=== PATIENT | female | born 1955 | race Caucasian/White ===

== ENCOUNTER → 2016-05-25 | Outpatient (CLI) | payer BC ==
[~2016-05-25] MED LIST: CHOL100010 PO; LEVO50TA PO; LOSA100T2 PO
== END | disposition home or self-care (01) ==
LOC: C.PAPS 10:00
PROVIDERS: ATTEND Obstetrics & Gynecology
DX: Z01.419 Encounter for gynecological examination (general) (routine) without abnormal findings (principal)

== ENCOUNTER → 2016-07-12 | Outpatient (CLI) | payer BC ==
[2016-07-12 17:57] LABS: URINE APPEARANCE CLEAR (CLEAR); URINE BILIRUBIN NEG (NEG); URINE COLOR YELLOW; URINE EPITHELIAL CELL AUTO >30 /lpf (0-5); URINE NITRITE NEG (NEG); URINE PH 5.5 (4.5-7.5); URINE SPECIFIC GRAVITY 1.024 (1.000-1.030); UROBILINOGEN NEG (NEG)
[2016-07-12 18:23] LABS: MANUAL MICROSCOPIC REQUIRED? NO; REVIEW REQ? YES
[2016-07-12 18:41] LABS: URINE MUCUS PRESENT (NONE PRSENT)
== END | disposition home or self-care (01) ==
LOC: C.LAB1850 16:33
PROVIDERS: ATTEND Physician Assistant Medical
DX: R39.9 Unspecified symptoms and signs involving the genitourinary system (principal)

== ENCOUNTER → 2016-09-20 | Outpatient (CLI) | payer BC ==
[2016-09-20 12:12] LABS: BASO % 0.3 %; BASO ABS # 0.02 K/uL (0-0.2); COMPLETE YES; EOS % 1.8 %; HEMATOCRIT 42.5 % (37-47); IG% 0.1 %; LYMPH % 23.3 %; LYMPH ABS # 1.57 K/uL (1.2-3.4); MEAN CELL VOLUME 92.4 fL (80-100); MEAN CORPUSCULAR HEMOGLOBIN 30.9 pg (25-34); MEAN CORPUSCULAR HGB CONC 33.4 g/dl (32-36); MEAN PLATELET VOLUME 10.6 fL (7.4-10.4); MONO % 6.8 %; NEUT % 67.7 %; PLATELET COUNT 279 K/uL (130-400); WHITE BLOOD COUNT 6.73 K/uL (4.8-10.8)
[2016-09-20 12:19] LABS: URINE APPEARANCE TURBID (CLEAR); URINE BILIRUBIN NEG (NEG); URINE COLOR YELLOW; URINE EPITHELIAL CELL AUTO >30 /lpf (0-5); URINE NITRITE NEG (NEG); URINE SPECIFIC GRAVITY 1.028 (1.000-1.030); UROBILINOGEN NEG (NEG); ZZUR CULT IF INDIC CLEAN CATCH NO
[2016-09-20 12:23] LABS: MANUAL MICROSCOPIC REQUIRED? NO; REVIEW REQ? NO
[2016-09-20 12:34] LABS: CALCIUM 9.4 mg/dl (8.5-10.1)
[2016-09-20 12:35] LABS: ESTIMATED AVERAGE GLUCOSE 117 mg/dl; HA1C FLAG Normal (Normal)
[2016-09-20 12:36] LABS: ALT/SGPT 22 U/L (12-78); AST/SGOT 14 U/L (15-37); BLOOD UREA NITROGEN 23 mg/dl (7-18); BUN/CREATININE RATIO 29.6 (10-20); CARBON DIOXIDE 31 mmol/L (21-32); CHLORIDE 109 mmol/L (98-107); CREATININE 0.77 mg/dl (0.60-1.20); GLUCOSE 95 mg/dl (70-99); POTASSIUM 3.9 mmol/L (3.5-5.1); SODIUM 143 mmol/L (136-145)
[2016-09-20 12:46] LABS: ALB/GLOB RATIO 1.1 (0.9-2); ALKALINE PHOSPHATASE 92 U/L (45-117); CHOLESTEROL 173 mg/dl (0-200); CHOLESTEROL/HDL RATIO 3.2; HDL CHOLESTEROL 54 mg/dl; LDL CHOLESTEROL CALCULATED 105 mg/dl; TRIGLYCERIDES 68 mg/dl (0-150); VERY LOW DENSITY LIPOPROT CALC 14 mg/dl
== END | disposition home or self-care (01) ==
LOC: C.LABBFT 07:42
PROVIDERS: ATTEND Internal Medicine
DX: R73.01 Impaired fasting glucose (principal); Z13.6 Encounter for screening for cardiovascular disorders; E03.9 Hypothyroidism, unspecified

== ENCOUNTER → 2016-11-28 | Outpatient (CLI) | payer BC ==
[2016-11-28 18:23] LABS: URINE APPEARANCE CLEAR (CLEAR); URINE BILIRUBIN NEG (NEG); URINE COLOR YELLOW; URINE NITRITE POS (NEG); URINE SPECIFIC GRAVITY 1.024 (1.000-1.030); UROBILINOGEN NEG (NEG)
[2016-11-28 18:24] LABS: MANUAL MICROSCOPIC REQUIRED? NO; REVIEW REQ? NO
== END | disposition home or self-care (01) ==
LOC: C.LABSPEC 17:39
PROVIDERS: ATTEND Physician Assistant
DX: N94.89 Other specified conditions associated with female genital organs and menstrual cycle (principal)

== ENCOUNTER → 2016-12-13 | Outpatient (CLI) | payer BC ==
[2016-12-13 17:46] LABS: URINE APPEARANCE CLEAR (CLEAR); URINE BILIRUBIN NEG (NEG); URINE COLOR YELLOW; URINE EPITHELIAL CELL AUTO 20-30 /lpf (0-5); URINE NITRITE NEG (NEG); URINE SPECIFIC GRAVITY 1.025 (1.000-1.030); UROBILINOGEN NEG (NEG); ZZUR CULT IF INDIC CLEAN CATCH YES
[2016-12-13 17:47] LABS: MANUAL MICROSCOPIC REQUIRED? NO; REVIEW REQ? NO
[2016-12-13 17:57] LABS: BLOOD UREA NITROGEN 12 mg/dl (7-18); CREATININE 0.62 mg/dl (0.60-1.20)
== END | disposition home or self-care (01) ==
LOC: C.LABBFT 14:41
PROVIDERS: ATTEND Internal Medicine
DX: R30.0 Dysuria (principal); R92.8 Other abnormal and inconclusive findings on diagnostic imaging of breast

== ENCOUNTER → 2016-12-14 | Outpatient (CLI) | payer BC ==
[~2016-12-14] MED LIST changes: +GADAVIST IV PRN
--- NOTE | 2016-12-17 13:10 | MAMMOGRAPHY REPORT ---
BREAST MRI OF BOTH BREASTS : 12/14/2016 CLINICAL HISTORY: Short interval followup of bilateral breast findings seen on prior breast MRI. 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 COMPARISON: Comparison is made to exams dated: 03/23/2016 mammogram, 09/20/2015 ultrasound, 10/04/2015 breast MRI, and 09/20/2015 mammogram - [facility]. CT abdomen/pelvis dated 012. Technique: The patient was placed prone in a dedicated breast imaging coil. Precontrast axial T1-wendie ghted, axial T2-weighted fat saturation, and axial T1-weighted fat saturation images were obtained. After the administration of 9 mL of Gadavist IV contrast, sequential T1-weighted fat saturation image s were obtained. Subtraction images were obtained of the dynamic contrast enhanced sequences, and 3- D reformations were performed. The [employer] [place] software was used for kinetic analysis. Findings: There is mild background parenchymal enhancement bilaterally. There has been no significant interval change compared to the prior breast MRI. Small 4 mm enhancing focus in the right 10:00 breast with as sociated T2 hyperintensity and persistent/plateau kinetics is stable compared to the 10/04/2015 exam an d considered benign given the benign morphology and stability (series [id number] image [id number]) . An 11 mm area of focal enhancement is again noted in the left 6:00 posterior breast, which contains interspersed T 1 hyperintensity consistent with fat and likely represents an island of normal fibroglandular tissue or lymph node (06282/98). The finding is stable compared to the prior 10/04/2015 breast MRI and additi onally this is stable compared to a prior CT abdomen from 2011. Given the long-term stability, the f inding is considered benign. There are multiple small T2 hyperintense, rim-enhancing masses bilatera lly, similar to the prior breast MRI and consistent with benign inflammatory cysts. There are no new or suspicious enhancing masses or areas of abnormal non-mass enhancement within either breast. There is no evidence of axillary adenopathy. The chest wall structures are negative. Extramammary s oft tissues are unremarkable. IMPRESSION: ACR BI-RADS CATEGORY 2: BENIGN Stable exam compared to the 10/04/2015 MRI, with no MRI evidence of malignancy in either breast. Retur n to annual mammogram screening schedule is recommended, due March 2017. Also recommend clinical follow-up for reported bilateral breast pain. Rosy Garner M.D. ah/:12/15/2016 11:53:54 Manufacturing Quality Inspector: floor polisher, [facility] BI-RADS Code: ACR BI-RADS Category 2: Benign
== END | disposition home or self-care (01) ==
LOC: C.MRI 15:40
PROVIDERS: ATTEND Internal Medicine
DX: N63 Unspecified lump in breast (principal); R92.8 Other abnormal and inconclusive findings on diagnostic imaging of breast

== ENCOUNTER → 2017-05-29 | Day surgery (SDC) | payer BC ==
[2017-05-17 10:53] VITALS: Ht 177.8 cm; Wt 90.9 kg
[~2017-05-29] VITALS: Ht 177.8 cm; Wt 90.9 kg
[~2017-05-29] MED LIST changes: +CHOL1000 PO; -CHOL100010 PO; -GADAVIST IV PRN; +LIDOCAINE HCL 2% 2 ML VIAL (20MG/ML) ONE; -LOSA100T2 PO; +LOSA1TAB38 PO; +MIDAZOLAM HCL 1 MG/ML 2ML VIAL ONE; +ONDANSETRON INJ 2 MG/ML 2 ML VIAL ONE; +PROPOFOL IV EMULSION 10 MG/ML 20 ML VIAL IV ONE; +SODIUM CHLORIDE 0.9% 500ML 500 ML IV ONE
--- NOTE | 2017-05-29 13:32 | Endo History and Physical ---
History & Physical Date of Service: May 29, 2017. Chief Complaint: screening Referring Physician: Dr. Isacc August History of Present Illness 61 yo CF who presents for screening colonoscopy. Past Surgical History Hx Cardiac Surgery: No Hx Internal Defibrillator: No Hx Pacemaker: No Hx Abdominal Surgery: No Hx of Implantable Prosthesis: No Hx Post-Op Nausea and Vomiting: No Hx Cancer Surgery: No Hx Thoracic Surgery: No Hx Orthopedic: Yes (LUMBAR DISCECTOMY) Hx Urinary Tract Surgery: No Family History Colon CA Social History Smoking Status: Never Smoker Hx Substance Use: No Hx Alcohol Use: Yes (OCCASIONALLY) Allergies Coded Allergies: No Known Allergies (Verified , ., 05/17/17) Current Medications Reported Home Medications Medications Dose Route/Sig Max Daily Dose Days Date Category Vitamin D3 (Cholecalciferol) 1,000 Unit Tab 1 Tab PO QAM 05/17/17 Reported Cozaar (Losartan Potassium) 100 Mg Tab 100 Mg PO QAM 05/17/17 Reported Synthroid (Levothyroxine Sodium) 50 Mcg Tab 50 Mcg PO QAM 09/13/11 Reported Vital Signs Weight (Kilograms): 90.91 Height (Feet): 5 Height (Inches): 10 Date Time Temp Pulse Resp B/P (MAP) Pulse Ox O2 Delivery O2 Flow Rate FiO2 05/29/17 12:59 36.5 62 20 143/71 (95) 98 Room Air Physical Exam General Appearance: WD/WN, no apparent distress Respiratory/Chest: Auscultation: breath sounds normal Cardiovascular: Heart Auscultation: RRR Abdomen: Bowel Sounds: normal Inspection & Palpation: soft, non-distended, no tenderness, guarding & rebound Assessment and Plan Assessment: 61 yo CF who presents for screening colonoscopy. Plan: Proceed with colonoscopy.
--- NOTE | 2017-05-29 14:00 | Discharge Instructions ---
Endoscopy Patient Instructions Date / Procedure(s) Performed May 29, 2017. Colonoscopy Allergy Information Coded Allergies: No Known Allergies (Verified , ., 05/17/17) Discharge Date / Findings May 29, 2017. Diverticulosis Internal hemorrhoids Medication Instructions OK to resume all medications today as prescribed Reported Home Medications Medications Dose Route/Sig Max Daily Dose Days Date Category Vitamin D3 (Cholecalciferol) 1,000 Unit Tab 1 Tab PO QAM 05/17/17 Reported Cozaar (Losartan Potassium) 100 Mg Tab 100 Mg PO QAM 05/17/17 Reported Synthroid (Levothyroxine Sodium) 50 Mcg Tab 50 Mcg PO QAM 09/13/11 Reported Provider Instructions Activity Restrictions - No exercising or heavy lifting for 24 hours. - Do not drink alcohol the day of the procedure. - Do not drive a car or operate machinery until the day after the procedure. - Do not make any important decisions or sign important papers in 24 hours after the procedure. Following Day: - Return to full activity which may include returning to work/school. Diet Start your diet with liquids and light foods (jello, soup, juice, toast). Then eat your usual diet if not nauseated. Treatment For Common After Affects For mild abdominal pain, bloating, or excessive gas: - Rest - Eat lightly - Lie on right side Follow-Up Information Follow-up with Dr. Isacc August as scheduled Anesthesia Information What You Should Know You have had a procedure that required some medicine to reduce anxiety and discomfort. This treatment is called moderate sedation. After receiving the treatment, you may be sleepy, but you will be able to breathe on your own. The effects of the treatment may last for several hours. Follow these instructions along with Activity/Diet recommendations noted above: * Do NOT do anything where dizziness or clumsiness would be dangerous. * Rest quietly at home today, then you can be up and about tomorrow. * Have a responsible person stay with you the rest of today. * You may have had an I.V. today. If so, you may take the dressing off later today. Recommendations Call your doctor if: * Trouble breathing * Continuous vomiting for more than 24 hours * Temperature above 101 degrees * Severe abdominal pain or bloating * Pain not relieved by pain medicine ordered * There is increased drainage or redness from any incision * A large amount of rectal bleeding greater than 2-3 tablespoons. (If you had a polyp/s removed or have hemorrhoids, a small amount of blood - from the rectum is to be expected.) * You have any unanswered questions or concerns. IN THE EVENT OF A SERIOUS EMERGENCY, GO TO THE NEAREST EMERGENCY ROOM Your discharge instructions were prepared by provider Artis Melendez. Patient Instructions Signature Page Katie Teague Patient (or Guardian) Signature/Date: I have read and understand the instructions given to me by my caregivers. Caregiver/RN/Doctor Signature/Date: The above-named patient and/or guardian has received patient instructions on this date. + Original Patient Signature Page (only) stays with chart. Please make copy for patient.
--- NOTE | 2017-05-29 14:00 | GI REPORT ---
Procedure Date: 05/29/2017 12:57 PM Procedure: Colonoscopy Indications: Screening for colorectal malignant neoplasm Medicines: Monitored Anesthesia Care Complications: No immediate complications. Estimated Blood Loss: Estimated blood loss: none. Procedure: Pre-Anesthesia Assessment: - Prior to the procedure, a History and Physical was performed, and patient medications and allergies were reviewed. The patient's tolerance of previous anesthesia was also reviewed. The risks and benefits of the procedure and the sedation options and risks were discussed with the patient. All questions were answered, and informed consent was obtained. Prior Anticoagulants: The patient has taken no previous anticoagulant or antiplatelet agents. ASA Grade Assessment: II - A patient with mild systemic disease. After reviewing the risks and benefits, the patient was deemed in satisfactory condition to undergo the procedure. After I obtained informed consent, the scope was passed under direct vision. Throughout the procedure, the patient's blood pressure, pulse, and oxygen saturations were monitored continuously. The scope was introduced through the anus and advanced to the terminal ileum. The colonoscopy was performed without difficulty. The patient tolerated the procedure well. The quality of the bowel preparation was good. The terminal ileum, ileocecal valve, appendiceal orifice, and rectum were photographed. Findings: The perianal and digital rectal examinations were normal. Multiple small-mouthed diverticula were found in the sigmoid colon. Non-bleeding internal hemorrhoids were found during retroflexion. The hemorrhoids were small. Impression: - Diverticulosis in the sigmoid colon. - Non-bleeding internal hemorrhoids. - No specimens collected. Recommendation: - Resume previous diet. - Continue present medications. - Repeat colonoscopy in 10 years for surveillance. - Return to primary care physician as previously scheduled. Artis Melendez, 05/29/2017 1:59:38 PM This report has been signed electronically. Note Initiated On: 05/29/2017 12:57 PM I attest to the content of the Intraoperative Record and orders documented therein, exceptions below
[2017-05-29 14:26] VITALS: BP 113/73; PULSE 63; O2SAT 96
--- NOTE | 2017-05-29 14:54 | Anesthesiology Progress Note ---
Anesthesia Post Op Note Date & Time May 29, 2017 at 14:54 Vital Signs Pain Intensity: 0 Vital Signs Past 12 Hours Date Time Temp Pulse Resp B/P (MAP) Pulse Ox O2 Delivery O2 Flow Rate FiO2 05/29/17 14:26 63 18 113/73 (86) 96 Room Air 05/29/17 14:10 65 18 116/65 (82) 96 Room Air 05/29/17 13:56 76 18 104/55 (71) 95 Room Air 05/29/17 12:59 36.5 62 20 143/71 (95) 98 Room Air Notes Mental Status: alert / awake / arousable, participated in evaluation Pt Amnestic to Procedure: Yes Nausea / Vomiting: adequately controlled Pain: adequately controlled Airway Patency, RR, SpO2: stable & adequate BP & HR: stable & adequate Hydration State: stable & adequate Anesthetic Complications: no major complications apparent
== END | disposition home or self-care (01) ==
LOC: C.GI 12:38
PROVIDERS: ATTEND Internal Medicine
DX: Z12.11 Encounter for screening for malignant neoplasm of colon (principal); K57.30 Diverticulosis of large intestine without perforation or abscess without bleeding; K64.8 Other hemorrhoids; I10 Essential (primary) hypertension; Z80.0 Family history of malignant neoplasm of digestive organs

== ENCOUNTER → 2017-10-31 | Outpatient (CLI) | payer BC ==
[~2017-10-31] MED LIST changes: -LIDOCAINE HCL 2% 2 ML VIAL (20MG/ML) ONE; -MIDAZOLAM HCL 1 MG/ML 2ML VIAL ONE; -ONDANSETRON INJ 2 MG/ML 2 ML VIAL ONE; -PROPOFOL IV EMULSION 10 MG/ML 20 ML VIAL IV ONE; -SODIUM CHLORIDE 0.9% 500ML 500 ML IV ONE
== END | disposition home or self-care (01) ==
LOC: C.MAMM 14:03
PROVIDERS: ATTEND Internal Medicine
DX: Z78.0 Asymptomatic menopausal state (principal)

== ENCOUNTER 2019-04-21 09:43 | Observation (INO) ==
[2019-04-21] MEDS ORDERED: NITROGLYCERIN SL 0.4 MG/TAB TAB SL PRN ×2 (09:50→13:31)
[2019-04-21] MEDS ORDERED: ACETAMINOPHEN 500 MG TAB PO STA (09:50)
[2019-04-21] MEDS ORDERED: SODIUM CHLORIDE 0.9% 500 ML IV SCH (10:00)
[2019-04-21 10:09] LABS: Basophils # (auto) 0.02 K/uL (0-0.2); Basophils % (auto) 0.3 %; Eosinophils # (auto) 0.12 K/uL (0-0.5); Eosinophils % (auto) 1.7 %; Hematocrit (blood only) 41.5 % (37-47); Hemoglobin 13.8 g/dL (12.0-16.0); Immature Granulocytes # (auto) 0.01 K/uL (0.00-0.02); Immature Granulocytes % (auto) 0.1 %; Lymphocytes # (auto) 1.49 K/uL (1.2-3.4); Lymphocytes % (auto) 21.1 %; Mean Corpuscular Hgb Conc 33.3 g/dL (32-36); Mean Corpuscular Volume 90.2 fL (80-100); Mean Platelet Volume 9.9 fL (7.4-10.4); Monocytes # (auto) 0.56 K/uL (0.11-0.59); Monocytes % (auto) 7.9 %; Neutrophils # (auto) 4.85 K/uL (1.4-6.5); Neutrophils % (auto) 68.9 %; Platelet Count 292 K/uL (130-400); RDW Coefficient of Variation 14.7 % (11.5-14.5); White Blood Count 7.05 K/uL (4.8-10.8)
[2019-04-21 10:14] LABS: Appearance Urine Clear (Clear); Bacteria Urine Automated Negative (Negative); Bilirubin Urine Negative (Negative); Blood Urine Negative (Negative); Cast Urine Automated 0 /lpf (0-5); Color Urine Yellow; Glucose Urine UA Negative (Negative); Ketones Urine Negative (Negative); Leukocyte Esterase Urine Trace (Negative); Nitrite Urine Negative (Negative); Protein Urine Negative (Negative); RBC Urine Automated 0-4 /hpf (0-4); Specific Gravity Urine 1.017 (1.000-1.030); Urobilinogen Urine Negative (Negative)
--- NOTE | 2019-04-21 10:19 | XRay Report ---
XR chest 1V portable CLINICAL HISTORY: 63 years-old Female presenting with Chest Pain. TECHNIQUE: Portable upright AP view of the chest was obtained. COMPARISON: 03/14/2013. FINDINGS: Cardiac silhouette borderline enlarged. No focal opacity. No large effusion or pneumothorax. Degenera tive changes of the thoracic spine. Upper abdomen normal. IMPRESSION: 1. Borderline cardiomegaly. No other convincing evidence of acute cardiopulmonary disease. ACT 112: Negative or not required by law. Electronically signed by: Sreedhar Garnica M.D. 04/21/2019 10:18 AM
[2019-04-21 10:24] LABS: Alanine Aminotransferase 22 U/L (12-78); Albumin Level 3.8 gm/dl (3.4-5.0); Aspartate Aminotransferase 12 U/L (15-37); Blood Urea Nitrogen 18 mg/dl (7-18); Calcium 9.2 mg/dl (8.5-10.1); Carbon Dioxide 27 mmol/L (21-32); Chloride 107 mmol/L (98-107); Creatinine Clr Calc Pharmacy 95.3 ml/min; Est GFR (African American) 95.9; Est GFR (Non-African American) 82.8; Glucose 105 mg/dl (70-99); Lipase 209 U/L (73-393); Sodium 138 mmol/L (136-145)
[2019-04-21 10:29] LABS: Alkaline Phosphatase 120 U/L (45-117); Bilirubin,Total 1.4 mg/dl (0.2-1); Total Protein 7.8 gm/dl (6.4-8.2); Troponin I < 0.015 ng/ml (0-0.045)
--- NOTE | 2019-04-21 12:31 | History & Physical Report ---
Date of Service April 21, 2019 Assessment & Plan (1) Atypical chest pain: Admit to PCU on telemetry for atypical chest pain. Vital signs every 4 hours Troponin x3 with EKG to rule out possibility of acute coronary syndrome TTE pending Monitor electrolytes and replenish as needed DVT prophylaxis Lovenox 40 mg subcu daily Full code Present on Admission?: Yes (2) Blurry vision: Patient was reporting blurry vision when she had initial episode of chest pain. It subsided. Continue monitoring Present on Admission?: Yes (3) HTN (hypertension): Blood pressure is stable. Continue losartan 100 mg p.o. daily. Added aspirin 81 mg p.o. daily to patient's regimen. Present on Admission?: Yes (4) Hypothyroidism: TSH pending, continue levothyroxine 50 MCG's p.o. every morning. Present on Admission?: Yes (5) Hyperlipidemia: Lipid panel pending. Patient is not on statins. Consider starting statins tomorrow after fasting lipid panel results available. Will check for A1c just to make sure that patient is not diabetic. Present on Admission?: Yes History of Present Illness Chief Complaint: Chest pain and neck pain Primary Care Provider: Isacc August MD The patient is a 63 years old female with past medical history of arthralgia of multiple sites, diverticulosis, hypothyroidism, hypertension, who was brought to the emergency room by her and friend stating that patient started to have a chest pain this morning which has been ongoing. Patient reports that chest pain started this morning after her phone conversation which was not very pleasant. Patient reports having a lots of worries about her job. Patient reports that pain started on the left side of her chest and radiated to her neck and her left arm. She received nitroglycerin and that improved chest pain per se but the pain in her right neck and right upper back remained to be the same. Patient reports that she feels it feels like a whiplash. Patient denies fever, chills, headache, abdominal pain, frequency, urgency, syncope or near syncope. Patient denies any sick contact. Labs are reviewed: Sodium 138, potassium 4, chloride 107, carbon dioxide 27, anion gap 5, BUN 18, creatinine 0.77, GFR 82.8,Calcium 9.2, bilirubin 1.4, AST 12, ALT 22, alkaline phosphatase 120, troponin 0 0.015, Albumin 3.8, globulin 4, lipase 209, TSH pending, BNP pending, magnesium pending. WBC 7.05, hemoglobin 13.8, hematocrit 41.5, platelets 292, PT 10.9, INR 1.1, urine trace leukocyte esterase with 10-20 epithelial cells. Negative bacteria, negative nitrates. Chest x-ray is borderline cardiomegaly. No other convincing evidence of acute cardiopulmonary disease. Decision was made to admit patient to PCU on telemetry for observation and to rule out acute coronary syndrome. Allergies Allergy/AdvReac Type Severity Reaction Status Date / Time No Known Allergies Allergy Unknown . Verified 04/21/19 10:24 Home Medications Home Medications Medication Instructions Recorded Confirmed Type ascorbic acid (vitamin C) 500 mg 500 mg PO QAM cap 09/12/18 04/21/19 History capsule cholecalciferol (vitamin D3) 25 1,000 units PO QAM cap 11/07/18 04/21/19 History mcg (1,000 unit) capsule losartan 100 mg tablet 100 mg PO DAILY #90 tab 12/02/18 04/21/19 Rx Unknown Uti Medication 1 tab PO BID 04/21/19 04/21/19 History levothyroxine 50 mcg PO QAM 04/21/19 04/21/19 History Past Med/Surg History Medical History Arthralgia of multiple sites (Acute) Asymptomatic menopausal state (Acute) Diverticulosis (Acute) Gastroesophageal reflux disease (Acute) HTN (hypertension) (Chronic) Hyperglycemia (Acute) Hyperlipidemia (Chronic) Hypothyroidism (Chronic) Impaired fasting glucose (Chronic) Internal hemorrhoids (Acute) Lower esophageal ring (Acute) Migraine headache (Acute) Solar lentigo (Acute) Vaginal atrophy (Acute) Vitamin D deficiency (Acute) Surgical History H/O tubal ligation History of back surgery lumbar spine 2001 Family History Aunt Breast cancer maternal aunt Brother Cancer oral Hypothyroidism Mother Cirrhosis Atrial fibrillation Liver disease Hypothyroidism Father Diabetes Hyperlipidemia Hypertension Sister Hypothyroidism Social History Preferred Language: Maltese Communication Ability: Effective 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 Beliefs That Will Affect Care: None Current Living Situation: Spouse Other Information That Helps Us Care for You: No Feels Safe at Home: Yes Safety Concerns: Feels Safe At This Time Smoking Status: Never smoker Do You Dip or Chew Tobacco: No ; Second Hand Exposure: No ; Tobacco Cessation Education Requested by Patient: No Hx Alcohol Use: Yes Hx Substance Use: No Review of Systems Review of Systems: All systems reviewed & are unremarkable except as noted in HPI & below Physical Exam Constitutional: WD/WN, vitals as above well developed and + obese Eyes: PERRL, conjunctivae normal, anicteric sclerae ENMT: external ear and nose normal, oropharynx normal Neck: trachea midline, no thyromegaly Respiratory: normal respiratory effort, lungs clear to auscultation Cardiovascular: Rate/Rhythm: regular rhythm Heart Sounds: normal S1, normal S2 and + murmur Vessels: dorsalis pedis pulses present Gastrointestinal (Abdomen): normal bowel sounds, soft, nontender, no hepatosplenomegaly Musculoskeletal: no cyanosis or clubbing, extremities motor strength 5/5 Skin: no rashes, warm and dry Neurologic: patellar DTR's 2+ bilat, sensation intact Psychiatric: A+Ox3, euthymic affect Lymphatic: no cervical or axillary lymphadenopathy Results & Data Vital Signs (Past 12 Hours) Vital Signs Temp Pulse Pulse Resp BP BP Pulse Ox 04/21/19 12:00 57 L 17 154/81 H 99 04/21/19 11:30 60 16 141/74 H 98 04/21/19 11:00 55 L 16 149/71 H 98 04/21/19 10:15 64 18 148/84 H 98 04/21/19 10:14 99 04/21/19 10:06 65 16 162/88 H 97 04/21/19 09:58 98 04/21/19 09:40 36.6 C 70 16 165/86 H 98 Code Status & VTE Plan Code Status Full code VTE Prophylaxis Plan VTE Prophylaxis will be ordered: Yes PG Care Time/CCT Total # of Minutes Spent Total Time Spent with Patient: Total time spent is greater than 50% in coordination of care (as documented) at patient's floor/unit and/or counseling patient:
--- NOTE | 2019-04-21 12:42 | Emergency Department Note ---
Entered by Mike Ruiz acting as a scribe for History of Present Illness General Chief complaint: Chest Pain Time Seen by Provider: 04/21/19 09:44 Source: patient Limitations: no limitations History of Present Illness Onset (ago): hour(s) (1.5) Location: chest Radiation: back and neck Pain Consistency: + constant Quality: + aching Relieved By: + medication Associated symptoms: + denies other symptoms (swelling in legs); no cough and no nausea/vomiting Treatments prior to arrival: aspirin and other (nitroglycerin) The patient is a 63 year-old white female w/ PMHx HTN, HLD, GERD who presents to the ED w/ CC of constant and achy chest pain starting beginning 1.5 hours ago. The patient states she was reading papers when she noticed her vision was blurry. She states she then started to get chest pain and notes it radiated to her back and neck. She states she still has chest pain. EMS states the patient received aspirin and nitroglycerin on the way to the ED. The patient states she developed a headache after the medications in the ambulance, but notes her chest pain improved. She states she can see better now. She notes she has been taking her medications as prescribed. The patient denies coughing, swelling in legs, nausea, vomiting, and having a history of heart disease or blood clots. Home Medications Home Medications Medication Instructions Recorded Confirmed Type ascorbic acid (vitamin C) 500 mg 500 mg PO QAM cap 09/12/18 04/21/19 History capsule cholecalciferol (vitamin D3) 25 1,000 units PO QAM cap 11/07/18 04/21/19 History mcg (1,000 unit) capsule losartan 100 mg tablet 100 mg PO DAILY #90 tab 12/02/18 04/21/19 Rx Unknown Uti Medication 1 tab PO BID 04/21/19 04/21/19 History levothyroxine 50 mcg PO QAM 04/21/19 04/21/19 History Allergies Allergy/AdvReac Type Severity Reaction Status Date / Time No Known Allergies Allergy Unknown . Verified 04/21/19 10:24 Past Med/Surg History Medical History Arthralgia of multiple sites (Acute) Asymptomatic menopausal state (Acute) Diverticulosis (Acute) Gastroesophageal reflux disease (Acute) HTN (hypertension) (Chronic) Hyperglycemia (Acute) Hyperlipidemia (Chronic) Hypothyroidism (Chronic) Impaired fasting glucose (Chronic) Internal hemorrhoids (Acute) Lower esophageal ring (Acute) Migraine headache (Acute) Solar lentigo (Acute) Vaginal atrophy (Acute) Vitamin D deficiency (Acute) Surgical History H/O tubal ligation History of back surgery lumbar spine 2001 Family History Aunt Breast cancer maternal aunt Brother Cancer oral Hypothyroidism Mother Cirrhosis Atrial fibrillation Liver disease Hypothyroidism Father Diabetes Hyperlipidemia Hypertension Sister Hypothyroidism Social History Preferred Language: Nepali Communication Ability: Effective Roll Setter Required: No Beliefs That Will Affect Care: None Current Living Situation: Spouse Other Information That Helps Us Care for You: No Feels Safe at Home: Yes Safety Concerns: Feels Safe At This Time Smoking Status: Never smoker Do You Dip or Chew Tobacco: No ; Second Hand Exposure: No ; Tobacco Cessation Education Requested by Patient: No Hx Alcohol Use: Yes Hx Substance Use: No Review of Systems See HPI for pertinent positives & negatives. and A total of 10 systems reviewed and were otherwise negative Physical Exam Vital Signs Vital Signs - 24 hr 04/21/19 09:40 04/21/19 09:58 04/21/19 10:06 Temperature 36.6 C Temperature Source Oral Pulse Rate 70 Pulse Rate [Apical] 65 Pulse Rate from SpO2 Sensor Respiratory Rate 16 16 Blood Pressure 165/86 H Blood Pressure [Right Arm] 162/88 H Blood Pressure Mean 112 Blood Pressure Mean [Right Arm] 112 Pulse Oximetry 98 98 97 Oxygen Delivery Method Room Air Room Air Room Air Sepsis Recent Fever Within 48 Hours No Sepsis New/Unexplained Change in Mental Status No Sepsis Action Taken by Nursing No Action Required 04/21/19 10:14 04/21/19 10:15 04/21/19 11:00 Temperature Temperature Source Pulse Rate 55 L Pulse Rate [Apical] 64 Pulse Rate from SpO2 Sensor 55 L Respiratory Rate 18 16 Blood Pressure 149/71 H Blood Pressure [Right Arm] 148/84 H Blood Pressure Mean 90 Blood Pressure Mean [Right Arm] 105 Pulse Oximetry 99 98 98 Oxygen Delivery Method Room Air Room Air Sepsis Recent Fever Within 48 Hours Sepsis New/Unexplained Change in Mental Status Sepsis Action Taken by Nursing 04/21/19 11:30 04/21/19 12:00 04/21/19 12:30 Temperature Temperature Source Pulse Rate 60 57 L 56 L Pulse Rate [Apical] Pulse Rate from SpO2 Sensor 60 57 L 56 L Respiratory Rate 16 17 14 Blood Pressure 141/74 H 154/81 H 163/91 H Blood Pressure [Right Arm] Blood Pressure Mean 94 112 127 Blood Pressure Mean [Right Arm] Pulse Oximetry 98 99 98 Oxygen Delivery Method Sepsis Recent Fever Within 48 Hours Sepsis New/Unexplained Change in Mental Status Sepsis Action Taken by Nursing GENERAL: Well appearing, well nourished, non-toxic. Wearing glasses. EYE EXAM: Normal conjunctiva. PERRL, no anisocoria and EOM's grossly intact w/o pain. OROPHARYNX: Moist mucous membranes. Normal dentition. NECK: Supple, no nuchal rigidity, no adenopathy, non-tender. no signs of meningismus. LUNGS: Clear to auscultation. Normal chest wall mechanics. HEART: NSR, no MRG. ABDOMEN: Abdomen soft, non-tender, normo-active bowel sounds, no masses, no rebound or guarding. BACK: No CVA TTP. SKIN: No rashes and no bruising. UPPER EXTREMITIES: Upper extremities are grossly normal. LOWER EXTREMITIES: No pitting edema. No calf pain. Negative Kody's sign. NEURO EXAM: Cranial nerves II-XII grossly intact, normal speech. Moves all 4 extremities on command w/o issue. Course Course 0944: The patient was evaluated in room B11B, and a complete history and physical examination were performed. 0948: Continuous Cardiac Monitoring: An order was placed for continuous cardiac monitoring. The monitor shows a rate of 63 with a sinus rhythm. 1055: I reevaluated the patient. She states she is willing to stay in the hospital. She states she still has a little neck pain and headache. She refused Tylenol. 1111: I discussed the patient's case with Dr. Lopez - [facility]. She will evaluate the patient for further management. Administered Medications Nitroglycerin (Nitrostat) 0.4 mg SL UD PRN PRN Reason: Chest Pain Stop: 05/21/19 09:49 Last Admin: 04/21/19 10:04 Dose: 0.4 mg Documented by: [id number] Discontinued Medications Acetaminophen (Tylenol) 1,000 mg PO NOW STA Stop: 04/21/19 09:51 Last Admin: 04/21/19 10:04 Dose: Not Given Documented by: [id number] Sodium Chloride (Nss) 500 mls @ 999 mls/hr IV .Q31M QUINTON Stop: 04/21/19 10:30 Last Infusion: 04/21/19 10:37 Dose: 0 mls/hr Documented by: [id number] Admin: 04/21/19 10:04 Dose: 999 mls/hr Documented by: [id number] Medical Decision Making Differential Diagnosis Differential diagnoses includes but is not limited to acute coronary syndrome, myocardial infarction, pericarditis, pulmonary embolus, aortic dissection, pneumonia, pneumothorax, musculoskeletal, shingles, esophageal. Medical Records Attestation: I reviewed the patient's medical records. Home Medications Current Medication List: was personally reviewed by me Laboratory Data Attestation: I reviewed the patient's lab results. Result diagrams: 04/21/19 09:54 04/21/19 09:54 Lab Results 04/21/19 04/21/19 04/21/19 Range/Units 09:54 09:54 09:55 WBC 7.05 (4.8-10.8) K/uL RBC 4.60 (4.2-5.4) M/uL Hgb 13.8 (12.0-16.0) g/dL Hct 41.5 (37-47) % MCV 90.2 (80-100) fL MCH 30.0 (25-34) pg MCHC 33.3 (32-36) g/dL RDW Std Deviation 48.0 H (36.4-46.3) fL RDW Coeff of Carol 14.7 H (11.5-14.5) % Plt Count 292 (130-400) K/uL MPV 9.9 (7.4-10.4) fL Immature Gran % (Auto) 0.1 % Neut % (Auto) 68.9 % Lymph % (Auto) 21.1 % Clay % (Auto) 7.9 % Eos % (Auto) 1.7 % Baso % (Auto) 0.3 % Immature Gran # (Auto) 0.01 (0.00-0.02) K/uL Neut # (Auto) 4.85 (1.4-6.5) K/uL Lymph # (Auto) 1.49 (1.2-3.4) K/uL Clay # (Auto) 0.56 (0.11-0.59) K/uL Eos # (Auto) 0.12 (0-0.5) K/uL Baso # (Auto) 0.02 (0-0.2) K/uL Sodium 138 (136-145) mmol/L Potassium 4.0 (3.5-5.1) mmol/L Chloride 107 (98-107) mmol/L Carbon Dioxide 27 (21-32) mmol/L Anion Gap 5.0 (3-11) BUN 18 (7-18) mg/dl Creatinine 0.77 (0.6-1.2) mg/dl Est Cr Clr Drug Dosing 95.3 ml/min Est GFR ( Amer) 95.9 Est GFR (Non-Af Amer) 82.8 BUN/Creatinine Ratio 23.0 H (10-20) Glucose 105 H (70-99) mg/dl Calcium 9.2 (8.5-10.1) mg/dl Total Bilirubin 1.4 H (0.2-1) mg/dl AST 12 L (15-37) U/L ALT 22 (12-78) U/L Alkaline Phosphatase 120 H (45-117) U/L Troponin I < 0.015 (0-0.045) ng/ml Total Protein 7.8 (6.4-8.2) gm/dl Albumin 3.8 (3.4-5.0) gm/dl Globulin 4.0 (2.5-4.0) gm/dl Albumin/Globulin Ratio 1.0 (0.9-2) Lipase 209 (73-393) U/L Urine Color Yellow Urine Appearance Clear (Clear) Urine pH 5.0 (4.5-7.5) Ur Specific [place] 1.017 (1.000-1.030) Urine Protein Negative (Negative) Urine Glucose (UA) Negative (Negative) Urine Ketones Negative (Negative) Urine Blood Negative (Negative) Urine Nitrite Negative (Negative) Urine Bilirubin Negative (Negative) Urine Urobilinogen Negative (Negative) Ur Leukocyte Esterase Trace H (Negative) Urine WBC (Auto) 1-5 (0-5) /hpf Urine RBC (Auto) 0-4 (0-4) /hpf U Hyaline Cast (Auto) 0 (0-5) /lpf U Epithel Cells (Auto) 10-20 H (0-5) /lpf Urine Bacteria (Auto) Negative (Negative) Imaging Data Radiologist's Impression: Radiology results as stated below per my review and the radiologist's interpretation: XR chest 1V portable CLINICAL HISTORY: 63 years-old Female presenting with Chest Pain. TECHNIQUE: Portable upright AP view of the chest was obtained. COMPARISON: 03/14/2013. FINDINGS: Cardiac silhouette borderline enlarged. No focal opacity. No large effusion or pneumothorax. Degenerative changes of the thoracic spine. Upper abdomen normal. IMPRESSION: 1. Borderline cardiomegaly. No other convincing evidence of acute cardiopulmonary disease. ACT 112: Negative or not required by law. Electronically signed by: Sreedhar Garnica M.D. 04/21/2019 10:18 AM ECG Data Attestation: I personally reviewed and interpreted this ECG as follows: Indication: + chest pain Rate (beats per minute): 63 Rhythm: + sinus rhythm ECG Intervals/blocks: + First degree AV block ECG [place]: + Normal ECG ST segments: no ST depression, no ST elevation and no T-wave inversions ECG Findings: + Q waves (inferiorly) Blood Pressure Blood Pressure Findings: Elevated blood pressure Blood Pressure Disposition: further management by hospitalist LAUREN Narrative The patient is a 63 year-old white female w/ PMHx HTN, HLD, GERD who presents to the ED w/ CC of constant and achy chest pain starting beginning 1.5 hours ago. Patient was seen and evaluated the bedside. The patient did develop onset of chest pain which radiated to the back and neck. Nonexertional no nausea no vomiting. No lower extremity swelling fevers chills. The patient did have improvement of chest pain after aspirin nitro. Patient no longer has any visual difficulties. Patient had negative Homans sign no signs or stigmata of DVT PE or heart failure at this time. Clear breath sounds. Non-smoker. Patient did a blood work complete along with an EKG troponin chest x-ray. Patient's EKG does not show significant ischemic changes but the patient does have a mildly concerning story. The patient's chest pain did improve did radiat e to the upper back and neck area. Given this concern I did recommend observation and continued cardiac monitoring. The patient is agreeable. Patient still has some mild neck pain and headache but the headache is likely from the nitro. Nonfocal neurologically no sensory deficits for the patient. Patient does not have lower extremity swelling. Chest x-ray borderline enlarged heart but no other concerning signs. Patient currently does not have chest pain. I did speak the on-call hospitalist agreed to further evaluate treat the patient. Patient was admitted to the medicine service. Impression & Plan Atypical chest pain, Blurry vision Discharge Plan Visit Data Chief Complaint: Chest Pain ED Provider: Dillon Cunningham Discharge Problem: Atypical chest pain, Blurry vision Patient Disposition: Being Evaluated by Hospitalist Forms Stand Alone Forms: Call Back Authorization, My [facility] Prescriptions Prescriptions: No Action losartan 100 mg tablet 100 mg PO DAILY Qty: 90 RF: 1 ascorbic acid (vitamin C) 500 mg capsule 500 mg PO QAM RF: 0 cholecalciferol (vitamin D3) 1,000 unit capsule 1,000 units PO QAM RF: 0 Unknown Uti Medication 1 tab PO BID RF: 0 levothyroxine 50 mcg tablet 50 mcg PO QAM RF: 0 Referrals Referrals: Baljit August MD [Primary Care Provider] - The scribe's documentation has been prepared under my direction and personally reviewed by me in its entirety. I confirm that the note above accurately reflects all work, treatment, procedures, and medical decision making performed by me.
[2019-04-21] MEDS ORDERED: ACETAMINOPHEN 325 MG TAB PO PRN (13:31)
[2019-04-21] MEDS ORDERED: POLYETHYLENE (MIRALAX) 17 GM PACK PO PRN (13:31)
[2019-04-21] MEDS ORDERED: ALUMINUM/MAGNESIUM SUSP 30 ML UDC PO PRN (13:31)
[2019-04-21] MEDS ORDERED: NITROGLYCERIN 2% OINTMENT 30GM TUBE EXT PRN (13:31)
[2019-04-21] MEDS ORDERED: MAGNESIUM HYDROXIDE SUSP 30 ML UDC PO PRN (13:31)
[2019-04-21] MEDS ORDERED: OXYCODONE/ACETAMINOPHEN 5mg/325mg TAB PO PRN (13:31)
[2019-04-21] MEDS ORDERED: KETOROLAC 30 MG/ML VIAL IV PRN (13:31)
[2019-04-21] MEDS ORDERED: ONDANSETRON INJ 2 MG/ML 2 ML VIAL IV PRN (13:31)
[2019-04-21] MEDS ORDERED: ACETAMINOPHEN 325 MG TAB ONE (13:39)
[2019-04-21 14:27] LABS: NT Pro B Type Natriuretic Pept 167 pg/ml (0-900); Troponin I < 0.015 ng/ml (0-0.045)
--- NOTE | 2019-04-21 14:37 | XRay Report ---
XR thoracic spine 2V CLINICAL HISTORY: neck and back pain COMPARISON STUDY: No previous studies for comparison. FINDINGS: There is a minimal spinal curvature. The paraspinal line is not significantly displaced. Th ere are mild multilevel degenerative changes. No acute fractures or traumatic subluxations are visual ized. No destructive lesions are evident. IMPRESSION: Mild degenerative change. No evidence of fracture. No destructive lesions are visualized on conventional radiographic imaging ACT 112: Negative or not required by law. Electronically signed by: Rick Patrick M.D. 04/21/2019 2:35 PM
--- NOTE | 2019-04-21 14:37 | XRay Report ---
XR cervical spine 2 or 3V CLINICAL HISTORY: Neck pain. COMPARISON STUDY: Cervical spine radiographs September 13, 2011. FINDINGS: Alignment of the cervical spine is anatomic. No fracture or suspicious lesion. There is mod erate disc space narrowing with osteophytosis at C6-C7. There is mild multilevel facet arthrosis. Pre vertebral soft tissues are unremarkable. IMPRESSION: 1. No cervical spine fracture. 2. Moderate disc space narrowing and osteophytosis at C6-C7. 3. Mild to moderate multilevel facet arthrosis and degenerative disc disease within the cervical spin e. ACT 112: Negative or not required by law. Electronically signed by: Juan Dallas M.D. 04/21/2019 2:35 PM
[2019-04-21] MEDS ORDERED: ENOXAPARIN INJ 40 MG/0.4 ML SYR SQ SCH (16:00)
[2019-04-21] MEDS: ASPIRIN 81 MG ECTAB PO SCH (16:13)
--- NOTE | 2019-04-21 22:36 | Electrocardiogram Report ---
Test Reason : Blood Pressure : / mmHG Vent. Rate : 063 BPM Atrial Rate : 063 BPM P-R Int : 208 ms QRS Dur : 092 ms QT Int : 406 ms P-R-T Axes : 032 -08 038 degrees QTc Int : 415 ms Normal sinus rhythm Minimal voltage criteria for LVH, may be normal variant Borderline ECG When compared with ECG of 15-MAR-2013 07:23, No significant change was found Confirmed by Burt Lam ([id number]) on 04/21/2019 10:36:16 PM Referred By: REFERRED SELF Confirmed By:Burt Lam
--- NOTE | 2019-04-21 23:08 | Electrocardiogram Report ---
Test Reason : Blood Pressure : / mmHG Vent. Rate : 054 BPM Atrial Rate : 054 BPM P-R Int : 226 ms QRS Dur : 088 ms QT Int : 448 ms P-R-T Axes : 022 -08 037 degrees QTc Int : 424 ms Sinus bradycardia with 1st degree A-V block Otherwise normal ECG When compared with ECG of 21-APR-2019 09:46, No significant change was found Confirmed by Burt Lam ([id number]) on 04/21/2019 11:08:37 PM Referred By: REFERRED SELF Confirmed By:Burt Lam
[2019-04-22 04:44] VITALS: O2SAT 96
[2019-04-22 06:13] LABS: Basophils # (auto) 0.02 K/uL (0-0.2); Basophils % (auto) 0.3 %; Eosinophils % (auto) 3.2 %; Hematocrit (blood only) 39.2 % (37-47); Hemoglobin 13.2 g/dL (12.0-16.0); Immature Granulocytes # (auto) 0.01 K/uL (0.00-0.02); Immature Granulocytes % (auto) 0.2 %; Lymphocytes # (auto) 1.72 K/uL (1.2-3.4); Lymphocytes % (auto) 27.5 %; Mean Corpuscular Hemoglobin 30.3 pg (25-34); Mean Corpuscular Hgb Conc 33.7 g/dL (32-36); Mean Corpuscular Volume 89.9 fL (80-100); Mean Platelet Volume 9.8 fL (7.4-10.4); Monocytes # (auto) 0.59 K/uL (0.11-0.59); Monocytes % (auto) 9.4 %; Neutrophils # (auto) 3.71 K/uL (1.4-6.5); Neutrophils % (auto) 59.4 %; Platelet Count 262 K/uL (130-400); RDW Coefficient of Variation 14.6 % (11.5-14.5); RDW Standard Deviation 48.6 fL (36.4-46.3); Red Blood Count 4.36 M/uL (4.2-5.4); White Blood Count 6.25 K/uL (4.8-10.8)
[2019-04-22] MEDS ORDERED: LEVOTHYROXINE SODIUM 50 MCG TABLET PO SCH (06:30)
[2019-04-22 06:33] LABS: Estimated Average Glucose 126 mg/dl
[2019-04-22 06:41] LABS: Albumin Level 3.1 gm/dl (3.4-5.0); BUN Creatinine Ratio 24.2 (10-20); Calcium 8.5 mg/dl (8.5-10.1); Creatinine Clr Calc Pharmacy 99.7 ml/min; Est GFR (Non-African American) 89.8
[2019-04-22 06:44] LABS: Albumin Globulin Ratio 0.9 (0.9-2); Bilirubin,Total 1.2 mg/dl (0.2-1); Globulin 3.5 gm/dl (2.5-4.0); Total Protein 6.6 gm/dl (6.4-8.2)
[2019-04-22 08:00] VITALS: TEMP 97.3
[2019-04-22] MEDS: ASPIRIN 81 MG ECTAB PO SCH (08:03)
[2019-04-22] MEDS ORDERED: LOSARTAN POTASSIUM 50 MG TAB PO SCH (09:00)
[2019-04-22] MEDS ORDERED: ASCORBIC ACID 500 MG TAB PO SCH (09:00)
[2019-04-22] MEDS ORDERED: CHOLECALCIFEROL 1,000 UNITS 25 MCG TAB PO SCH (09:00)
[2019-04-22 11:01] VITALS: BP 127/89
[2019-04-22 11:25] VITALS: PULSE 70
--- NOTE | 2019-04-22 16:14 | Discharge Summary ---
Date of Service April 22, 2019 Admission HPI Per Admitting Provider The patient is a 63 years old female with past medical history of arthralgia of multiple sites, diverticulosis, hypothyroidism, hypertension, who was brought to the emergency room by her and friend stating that patient started to have a chest pain this morning which has been ongoing. Patient reports that chest pain started this morning after her phone conversation which was not very pleasant. Patient reports having a lots of worries about her job. Patient reports that pain started on the left side of her chest and radiated to her neck and her left arm. She received nitroglycerin and that improved chest pain per se but the pain in her right neck and right upper back remained to be the same. Patient reports that she feels it feels like a whiplash. Patient denies fever, chills, headache, abdominal pain, frequency, urgency, syncope or near syncope. Patient denies any sick contact. Labs are reviewed: Sodium 138, potassium 4, chloride 107, carbon dioxide 27, anion gap 5, BUN 18, creatinine 0.77, GFR 82.8,Calcium 9.2, bilirubin 1.4, AST 12, ALT 22, alkaline phosphatase 120, troponin 0 0.015, Albumin 3.8, globulin 4, lipase 209, TSH pending, BNP pending, magnesium pending. WBC 7.05, hemoglobin 13.8, hematocrit 41.5, platelets 292, PT 10.9, INR 1.1, urine trace leukocyte esterase with 10-20 epithelial cells. Negative bacteria, negative nitrates. Chest x-ray is borderline cardiomegaly. No other convincing evidence of acute cardiopulmonary disease. Decision was made to admit patient to PCU on telemetry for observation and to rule out acute coronary syndrome. Principal Diagnosis Chest pain - Unclear cause, possibly hypertensive urgency Discharge Exam Constitutional WD/WN, vitals as above Eyes EOM intact bilaterally; no conjunctival abnormality ENMT external ear and nose normal, oropharynx normal Neck trachea midline, no thyromegaly normal visual inspection Respiratory normal respiratory effort, lungs clear to auscultation no respiratory distress Cardiovascular RRR, no murmur, no edema Gastrointestinal (Abdomen) Inspection/Auscultation: abdomen normal to inspection; abdomen not distended Musculoskeletal no cyanosis or clubbing, extremities motor strength 5/5 Skin no rashes, warm and dry Neurologic moves all extremities and awake Psychiatric Orientation: alert, oriented to person and cooperative Discharge Data Allergies Allergy/AdvReac Type Severity Reaction Status Date / Time No Known Allergies Allergy Unknown . Verified 04/21/19 10:24 Consultations 04/21/19 10:58 ED Decision to Admit Stat Hospital Course (1) Atypical chest pain: Heart score was 2, making her a low cardiac risk. The chest may have been hypertensive urgency (she had blurry vision as well), but her BP could also have been high due to stress and discomfort. It's kind of a chicken/egg issue. Prior stress test was negative, but was years ago. - Pain resolved and never came back. She can follow up with her PCP for a stress test if they desire. (2) Blurry vision: Patient was reporting blurry vision when she had initial episode of chest pain. 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 This could have been a hypertensive urgency situation, but it's a bit unclear. The vision resolved completely by the time I saw her. 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 If it is blood pressure-related, will need to search for cause of blood pressure variation. (3) HTN (hypertension): Patient reports BP as high as 190/100 in the office at work. Here, her BP was a bit high (160/80),but trended to normal while here (120/70-135/85). - Continue home losartan 100 mg p.o. daily. - She will check her BP at home one time per day and take this to Dr. August's office next week and compare her cuff to her PCP's. - I guess there's a small chance this could be a pheo with the episode of blurry vision, headache, hypertension, but I find this very unlikely. If more episodes occur, could check serum or urine metanephrines. (4) Hypothyroidism: TSH was 2.4. - Continue levothyroxine 50 MCG's p.o. every morning. (5) Hyperlipidemia: Patient is not on statin. A1c was 6.0%, meaning she is pre-diabetic. Total Time Total Time Spent Total Time Spent (In Minutes): 30 Discharge Plan Discharge Items Patient Disposition: Home - Self-Care Reason For Visit: CHEST PAIN, NECK PAIN Discharge Diagnosis: Chest pain, neck pain, and blurred vision - Possible hypertensive urgency Activity: Resume your previous activity Non-emergency contact: Primary Care Provider Call non-emergency contact if: your symptoms worsen Follow-up/Referrals: Baljit August MD [Primary Care Provider] - Diet: Heart Healthy Addtl Attending Provider Instructions: You were admitted with high blood pressure and chest pain, neck pain, and blurred vision. All your testing is normal, so we know you did not have a heart attack. Your good work-out regimen makes a heart-related issue very unlikely. Your ultrasound of your heart was also normal. It is not entirely clear what caused this. It is possible the high blood pressure caused these symptoms; however, it is also possible the stress and the symptoms caused the high blood pressure. Your blood pressure was a bit high when you came in (160/90), but then returned to normal on its own (120/70 to 135/80). From our conversation, it sounds like your blood pressure is usually well- controlled at home. We discussed that you should check your blood pressure every morning after having been sitting for a few minutes and relaxing. Please take these measurements to Dr. August's office and then check your cuff with the office one to be sure it's accurate. If this occurs again, please check your blood pressure. If it is high (>180/100), sit down, do some deep breathing exercises, and check the blood pressure again in 5-10 minutes. If it remains high or the symptoms are worsening, you will need to come to the ER. If the blood pressure is lowering and you are feeling better, call Dr. August's office for an appointment. Pending Studies at Discharge: No Stand-Alone Forms: Call Back Authorization, My [facility], Smoking Cessation Medications and DC Order Prescriptions: Continued losartan 100 mg tablet 100 mg PO DAILY Qty: 90 RF: 1 ascorbic acid (vitamin C) 500 mg capsule 500 mg PO QAM RF: 0 cholecalciferol (vitamin D3) 1,000 unit capsule 1,000 units PO QAM RF: 0 Unknown Uti Medication 1 tab PO BID RF: 0 levothyroxine 50 mcg tablet 50 mcg PO QAM RF: 0 Discharge Orders: Discharge Order (Routine); Ordered 04/22/19 Ordered By: Philipp Guillaume/Other Patient Handouts: A1C Admission Data Admit Date/Time: 04/21/19 12:19 Attending Provider: Philipp England. Admit Provider: Ramírez Lopez Primary Care Provider: Baljit August Other Providers: Philipp England Other Interventions: Discharge Summary Assessment (RN) Last Done: 04/22/19 10:59 DC Date/Time DO NOT enter until pt leaves facility: 04/22/19 11:15
--- NOTE | 2019-04-22 22:59 | Electrocardiogram Report ---
Test Reason : Blood Pressure : / mmHG Vent. Rate : 062 BPM Atrial Rate : 062 BPM P-R Int : 210 ms QRS Dur : 090 ms QT Int : 434 ms P-R-T Axes : 030 000 056 degrees QTc Int : 440 ms Sinus rhythm with 1st degree A-V block Otherwise normal ECG When compared with ECG of 21-APR-2019 13:35, No significant change was found Confirmed by Burt Lam ([id number]) on 04/22/2019 10:59:57 PM Referred By: REFERRED SELF Confirmed By:Burt Lam
== END 2019-04-22 11:15 | disposition home or self-care (01) ==
LOC: 1E 09:43 → ED 09:43 → SUATTDRO 12:19 → 1E 12:56 → 2S 18:46